=== PATIENT | male | born 1960 | race Two or more races ===

== ENCOUNTER 2017-01-06 10:31 | Day surgery (SDC) | payer BC ==
[~2017-01-06] VITALS: Ht 167.6 cm; Wt 74.9 kg
[2017-01-06 12:50] VITALS: Ht 167.6 cm; Wt 74.9 kg
[2017-01-06] MEDS ORDERED: ALEGRA (12:59)
[2017-01-06] MEDS ORDERED: FLUT9.9S NASAL (12:59)
[2017-01-06] MEDS ORDERED: PROPOFOL 20 ML ONE (13:33)
[2017-01-06 13:47] VITALS: BP 135/83; PULSE 77; RESP 22
[2017-01-06 14:40] VITALS: BP 121/90; RESP 20
--- NOTE | 2017-01-06 16:08 | OPR ---
Date/Time of Note Date/Time of Note DATE: 01/06/17 TIME: 16:05 Operative Report Preoperative Diagnosis * Colorectal cancer screening Postoperative Diagnosis Impression: * Questionable proctitis. Multitude of rounded areas of erythema. Biopsies obtained * Otherwise normal colon mucosa. Random biopsies obtained right and left colon to rule out microscopic colitis. * Moderate size internal hemorrhoids. Plan: * Review pathology as soon as available * Follow-up as previously scheduled * Annual Hemoccult testing * Screening colonoscopy in 10 years . Operation/Procedure Performed * Colonoscopy with biopsies Surgeon: DARIA VILLAFANA MD Anesthesia: MAC Estimated Blood Loss: none Specimens * Right, left colon and rectum Grafts/Implants * None Complications: None DARIA VILLAFANA MD Jan 06, 2017 16:08
== END 2017-01-06 16:25 | disposition home or self-care (01) ==
LOC: GIL 10:31 → EDSEX 10:31 → GIL 10:33
PROVIDERS: ATTEND Internal Medicine Gastroenterology
DX: Z12.11 Encounter for screening for malignant neoplasm of colon (principal); K64.8 Other hemorrhoids
CPT/HCPCS: 45380; 88305; Z7610